=== PATIENT | male | born 2000 | race Native Hawaiian/Other Pacific Islander ===

== ENCOUNTER 2025-05-26 18:46 | Emergency (ER) | payer OTHER, SELFPAY ==
[2025-05-26 19:05] VITALS: BP 149/88; PULSE 60; RESP 18; TEMP 36.7; O2SAT 98; BMI 30.7
[2025-05-26 20:43] VITALS: BP 140/87; PULSE 64; RESP 16; O2SAT 96
--- NOTE | 2025-05-26 21:03 | CTR_ITS ---
PROCEDURE INFORMATION: Exam: CT Abdomen And Pelvis With Contrast Exam date and time: 05/26/2025 9:28 PM Age: 25 years old Clinical indication: Abdominal pain; Additional info: Rlq pain TECHNIQUE: Imaging protocol: Computed tomography of the abdomen and pelvis with contrast. Total images: 281 Radiation optimization: All CT scans at this facility use at least one of these dose optimization techniques: automated exposure control; mA and/or kV adjustment per patient size (includes targeted exams where dose is matched to clinical indication); or iterative reconstruction. Contrast material: [id number]; Contrast volume: 100 ml; Contrast route: INTRAVENOUS (IV); COMPARISON: No relevant prior studies available. RADIATION DOSE METRICS: Total DLP (mGy-cm): 904.83 FINDINGS: Lungs: Insofar as lung bases are included within the field of view, no acute pathologic pulmonary process appreciated. Diaphragm: Small hiatal hernia present. Liver: Liver fatty infiltrated. Gallbladder and biliary ducts: Gallbladder unremarkable. No biliary ductal dilatation. Pancreas: Pancreas of normal thickness, contour, without pathologic pancreatic duct dilatation. Spleen: Spleen appears normal in contour and size without pathologic splenic mass. Adrenal glands: Adrenal glands are normal. Kidneys and ureters: Kidneys are normal. No evidence of obstructing urinary tract calculus, hydroureteronephrosis or perinephric edema. Stomach and bowel: No evidence of pathologic bowel distension or bowel wall thickening. Stomach is nondistended demonstrating areas of gastric wall thickening without suspicious pathologic fluid or inflammation to suggest acute gastritis or other specific inflammatory gastric process. Moderate volume of stool throughout the course of the nondistended cecum and ascending colon. Mild chronic diverticulosis of the distal colon without imaging evidence of acute diverticulitis. Left pelvic slightly indurated pericolonic nodule or lymph node (series 4, image 80; series 6, image 27; series 7, image 32) which may represent epiploic appendagitis. Appendix: Normal appendix. Intraperitoneal space: No significant peritoneal free fluid. No free peritoneal air. Vasculature: No major vessel occlusion, dissection, aneurysmal dilatation or definite hemodynamically significant stenosis. Lymph nodes: No lymphadenopathy. Urinary bladder: Bladder nondistended which likely accounts for uniform circumferential wall thickening. Reproductive: Prostate gland and seminal vesicles are normal. Bones/joints: No acute findings or suspicious lesions seen of the bones. Soft tissues: Ventral abdominal wall midline umbilical-periumbilical fat-containing hernia without inflammatory manifestations. Soft tissues are normal as visualized, demonstrating no masses or induration. CT/CT abdomen pelvis w con* [id number] IMPRESSION: 1. Query limited epiploic appendagitis adjacent to the otherwise normal-appearing sigmoid colon, slice positions reported above. 2. Distal sigmoid colon few uncomplicated diverticuli. 3. Moderate right colonic stool burden without distension, query constipation. 4. Normal appearance of the appendix and gallbladder. 5. Otherwise no acute intra-abdominal pathologic process identified. 6. Generalized hepatic steatosis.
[2025-05-26 21:24] LABS: Hematocrit 46.4 % (37-53); Hemoglobin 16.70 g/dL (11.27-16.99); Mean Corpuscular HGB Conc 36.0 g/dL (30-55); Mean Corpuscular Hemoglobin 29.1 pg (27-33); Mean Corpuscular Volume 81.0 fl (82-101); Nucleated Red Blood Cells % 0 %; Platelet Count 271 10^3/cmm (157-399); Red Blood Count 5.73 10^6/uL (3.85-5.65); White Blood Count 9.60 10^3/uL (3.29-11.43)
[2025-05-26 21:26] LABS: Add Urine Microscopic? NO
[2025-05-26 21:29] LABS: Glucose Urine UA Negative (Normal); Nitrate Urine Negative (Negative); Specific Gravity, Urine 1.021 (1.005-1.030)
[2025-05-26 21:32] LABS: Charge for UA Resulting for Rev
[2025-05-26] MEDS: iohexol 350 mg/mL 500 mL Btl (per mL) IV (21:32)
--- NOTE | 2025-05-26 21:33 | ED_ITS ---
HPI - Abdominal Pain 2 General: Chief Complaint: Abdominal Pain Stated Complaint: Abd Pain Time Seen by Provider: 05/26/25 19:52 Source: patient Mode of arrival: ambulatory Limitations: no limitations History of Present Illness: Patient is a 25-year-old male who reports to emergency department complaining of right lower quadrant abdominal pain that has been going on for 3 days. States that it has since radiated into his back. No history of prior abdominal surgeries. States he has lost his appetite, has been nauseous but no vomiting. No urinary symptoms or changes in bowel habits. States that the pain feels sharp and stabbing, he has not taken any medications for the pain. Does not report any specific alleviating or exacerbating factors to the pain. Vital stable at this time, overall nontoxic-appearing. No reporting fevers or chills. MD elicited complaint: abdominal pain Pertinent past history: none Onset (ago): day(s) Pain Consistency: constant Location: RLQ Quality: stabbing and sharp Radiation: back Exacerbating factors: nothing Relieving factors: nothing Associated Symptoms: Reports nausea; Denies bloating, change in stool character, chills, constipation, diarrhea, dysuria, fever(s), hematochezia and vomiting Related Data Allergies Allergy/AdvReac Type Severity Reaction Status Date / Time Milk Containing Products Allergy ADR-Gastrointestinal Verified 05/26/25 19:10 (Dairy) Upset Penicillins Allergy ALGY-Hives Verified 05/26/25 19:10 Review of Systems 2 General: Reports: 10 or more systems reviewed and unremarkable except in HPI and below Const: Reports: change in appetite; Denies: fever(s), chills, change in weight or diaphoresis ENMT: Denies: throat pain or hoarseness Card: Denies: chest pain, palpitations or lightheadedness Resp: Denies: dyspnea, productive cough or wheezing GI: Reports: abdominal pain and nausea; Denies: vomiting, diarrhea, constipation, bloating, change in stool character or hematochezia : Denies: flank pain, difficulty urinating, dysuria, urinary frequency or urinary urgency Musc: Reports: back pain; Denies: neck pain Skin/Breast: Denies: rash or new lesions Neuro: Denies: headache(s) or dizziness Physical Exam 2 Const: COMMON NORMALS: no acute distress, average body habitus, patient oriented x3, no limitations, healthy appearing, alert and well nourished G ENERAL APPEARANCE: cooperative and comfortable ORIENTATION/CONSCIOUSNESS: Yes awake OTHER: Nontoxic-appearing, comfortable. Neck/C-Spine: COMMON NORMALS: full ROM, supple and no meningeal signs Resp: COMMON NORMALS: normal respiratory effort, No retractions, No use of accessory muscles and clear to auscultation bilaterally AUSCULTATION: clear to auscultation bilaterally, no crackles, no rales, no rhonchi and no wheezes Cardio: COMMON NORMALS: regular rate, regular rhythm, No gallops present (Cardio), No clicks present (Cardio), No murmurs present (Cardio) and No rub (Cardio) RATE: regular rate RHYTHM: regular rhythm GI: COMMON NORMALS: Normal to inspection, nondistended, normoactive bowel sounds present, Soft to palpation, No hepatosplenomegaly present and no masses AUSCULTATION: Yes normoactive bowel sounds PALPATION: Yes Soft to palpation, Yes Tenderness to palpation present (GI) Details: RLQ, No Guarding due to palpation present (GI), No Rigid due to palpation and Yes No hepatosplenomegaly present RECTAL EXAM: Yes deferred OTHER: Negative Rovsing sign : COMMON NORMALS: Yes no CVA tenderness BLADDER/KIDNEY EXAM: Yes no CVA tenderness Back/Pelvis: COMMON NORMALS: no CVA tenderness Extremity: COMMON NORMALS: normal to inspection and full ROM Neuro: COMMON NORMALS: patient oriented x3, moves all extremities, no focal motor deficits and no sensory deficits noted SENSORIUM/ORIENTATION: Yes alert MENINGEAL SIGNS: Yes no meningeal signs Psych: COMMON NORMALS: mental status grossly normal, cooperative and speech normal SPEECH: Yes normal speech Skin: COMMON NORMALS: no rashes or lesions noted GENERAL SKIN EXAM: no rashes or lesions noted Course 2 Vital Signs: Vital signs: Vital Signs Temperature 98.1 F 05/26/25 19:05 Pulse Rate 63 05/26/25 22:28 Respiratory Rate 16 05/26/25 22:28 Blood Pressure 143/95 05/26/25 22:28 Pulse Oximetry 95 05/26/25 22:28 Oxygen Delivery Me thod Room Air 05/26/25 20:43 MDM - Abdominal Pain Medical Decision Making Patient presenting with right lower quadrant pain for the past few days, radiating to the back and associated nausea. Positive tender to palpation right lower quadrant but there were no peritoneal signs. He did still have his appendix gallbladder, no previous abdominal surgeries. Vitals have been stable, nontoxic-appearing on exam as well. His lab work was all normal, CT does not show any acute findings. Does appear that he is constipated, this could explain his pain versus other benign etiologies that is discussed with the patient, he is given general return precautions told to follow-up with primary care for routine reevaluation. Lab Data 05/26/25 20:57 05/26/25 20:57 Labs/Radiology: Radiology Impressions Abdomen/Pelvis CT 05/26/25 21:03 IMPRESSION: 1. Query limited epiploic appendagitis adjacent to the otherwise normal-appearing sigmoid colon, slice positions reported above. 2. Distal sigmoid colon few uncomplicated diverticuli. 3. Moderate right colonic stool burden without distension, query constipation. 4. Normal appearance of the appendix and gallbladder. 5. Otherwise no acute intra-abdominal pathologic process identified. 6. Generalized hepatic steatosis. Laboratory Results WBC 9.60 10^3/uL (3.29-11.43) 05/26/25 20:57 RBC 5.73 10^6/uL (3.85-5.65) H 05/26/25 20:57 Hgb 16.70 g/dL (11.27-16.99) 05/26/25 20:57 Hct 46.4 % (37-53) 05/26/25 20:57 MCV 81.0 fl (82-101) L 05/26/25 20:57 MCH 29.1 pg (27-33) 05/26/25 20:57 MCHC 36.0 g/dL (30-55) 05/26/25 20:57 RDW 12.2 % (12.1-15.1) 05/26/25 20:57 Plt Count 271 10^3/cmm (157-399) 05/26/25 20:57 MPV 10.5 fL (7.4-10.4) H 05/26/25 20:57 Neut % (Auto) 47.4 % 05/26/25 20:57 Lymph % (Auto) 37.6 % 05/26/25 20:57 Crisp % (Auto) 8.4 % 05/26/25 20:57 Eos % (Auto) 5.3 % 05/26/25 20:57 Baso % (Auto) 1.0 % 05/26/25 20:57 Neut # (Auto) 4.54 10^3/uL (1.8-7.7) 05/26/25 20:57 Lymph # (Auto) 3.6 10^3/uL (0.8-4.8) 05/26/25 20:57 Crisp # (Auto) 0.8 10^3/uL (0.2-0.9) 05/26/25 20:57 Eos # (Auto) 0.5 10^3/uL (0.0-0.8) 05/26/25 20:57 Baso # (Auto) 0.1 10^3/uL (0.0-0.1) 05/26/25 20:57 Nucleated RBC % (auto) 0 % 05/26/25 20:57 Nucleated RBCs # 0.0 /100WBC 05/26/25 20:57 Sodium 140 mmol/L (136-145) 05/26/25 20:57 Potassium 3.9 mmol/L (3.5-5.1) 05/26/25 20:57 Chloride 103 mmol/L (98-107) 05/26/25 20:57 Carbon Dioxide 26 mmol/L (22-29) 05/26/25 20:57 Anion Gap 14.9 (5-19) 05/26/25 20:57 BUN 13 mg/dL (6-20) 05/26/25 20:57 Creatinine 0.8 mg/dL (0.7-1.2) 05/26/25 20:57 GFR Calculation 116.9 mL/min (90-130) 05/26/25 20:57 Glucose 92 mg/dL (65-115) 05/26/25 20:57 Calculated Osmolality 290 mOsm/kg (285-295) 05/26/25 20:57 Calcium 9.6 mg/dL (8.5-10.5) 05/26/25 20:57 Total Bilirubin 0.7 mg/dL (0.15-1.2) 05/26/25 20:57 AST 17 U/L (0-40) 05/26/25 20:57 ALT 15 U/L (0-41) 05/26/25 20:57 Alkaline Phosphatase 58 U/L (40-130) 05/26/25 20:57 Total Protein 7.8 g/dL (6.6-8.7) 05/26/25 20:57 Albumin 4.7 g/dL (3.5-5.2) 05/26/25 20:57 Globulin 3.1 g/dL (1.3-4.6) 05/26/25 20:57 Lipase 20 U/L (13-60) 05/26/25 20:57 Urine Color Yellow (Yellow) 05/26/25 21:08 Urine Appearance Clear (CLEAR) 05/26/25 21:08 Urine pH 5.5 (5-7) 05/26/25 21:08 Ur Specific [place] 1.021 (1.005-1.030) 05/26/25 21:08 Urine Protein Negative (Negative) 05/26/25 21:08 Urine Glucose (UA) Negative (Normal) 05/26/25 21:08 Urine Ketones 1+ (Negative) H 05/26/25 21:08 Urine Blood Negative (Negative) 05/26/25 21:08 Urine Nitrate Negative (Negative) 05/26/25 21:08 Urine Bilirubin Negative (Negative) 05/26/25 21:08 Urine Urobilinogen 1.0 mg/dL (Negative) 05/26/25 21:08 Ur Leukocyte Esterase Negative (Negative) 05/26/25 21:08 Amorphous Sediment Not Reportable 05/26/25 21:08 All radiology interpretation(s) finalized by discharge Discharge Plan Discharge Patient Disposition: Home Clinical Impression: Abdominal pain Qualifiers: Abdominal location: right lower quadrant Qualified Code(s): R10.31 - Right lower quadrant pain Condition: Stable Discharge Orders: Discharge ED (Routine); Ordered 05/26/25 Ordered By: Mike Hector Patient Instructions: Abdominal Pain (ED), Patient Portal & Veronica Instructions Activity Restrictions/Additional Instructions: Abdominal Pain Discharge Diagnosis: Abdominal pain, likely related to constipation. No acute findings on CT abdomen/pelvis. Laboratory studies within normal limits. Summary and Benign Etiologies: The most likely cause of this patient's abdominal pain is constipation, as supported by imaging and clinical presentation. Other benign etiologies to consider include: - Functional gastrointestinal disorders (e.g., irritable bowel syndrome, functional dyspepsia, functional abdominal pain syndrome), which are common in young adults and often present with abdominal pain in the absence of structural disease. - Nonspecific abdominal pain, which is frequently encountered in the emergency setting and often resolves spontaneously. - Mild self-limited gastrointestinal infections or post-infectious changes, which may not be apparent on initial workup. - Abdominal wall pain (e.g., myofascial pain), which can mimic intra-abdominal pathology. - Rare benign causes such as epiploic appendagitis, which is self-limited and typically diagnosed on imaging. Constipation Management: - Dietary fiber: Gradually increase fiber intake through diet and/or supplements (e.g., psyllium 15 g daily). - Hydration: Encourage adequate fluid intake. - Physical activity: Regular exercise can improve bowel function. - Osmotic laxatives: Polyethylene glycol (PEG) is first-line (e.g., 17 g daily as needed). Magnesium-based laxatives are also effective and safe. - Stimulant laxatives: Bisacodyl or senna may be used for rescue therapy if needed. - Avoid opioid analgesics for abdominal pain, as they can worsen constipation and are not recommended for functional pain syndromes. Return Precautions: The patient should be instructed to return for immediate re-evaluation if any of the following develop: - Persistent or worsening abdominal pain - New onset of fever or chills - Recurrent or persistent vomiting - Inability to tolerate oral intake or signs of dehydration - Blood in stool or black, tarry stools - Unintentional weight loss - Jaundice or new swelling of the abdomen - Any other concerning or rapidly progressive symptoms These symptoms may indicate a more serious underlying condition that was not apparent on initial evaluation and warrant prompt reassessment. Follow-Up: - Arrange for follow-up with primary care or gastroenterology within 1?2 weeks to reassess symptoms and response to therapy. - If symptoms persist or worsen, further evaluation for less common causes of abdominal pain (e.g., metabolic, inflammatory, or structural disorders) may be warranted. - Scheduled return visits for non-specific abdominal pain have been shown to result in clinically relevant changes in diagnosis or management in a significant minority of patients, underscoring the importance of follow-up. Patient Education: - Most cases of abdominal pain with negative workup are benign and self-limited. - Constipation is a common and treatable cause of abdominal pain in young adults. - Adherence to dietary and lifestyle modifications, as well as appropriate use of laxatives, is essential for symptom control and prevention of recurrence. - Avoid unnecessary repeat imaging unless new or worsening symptoms develop, to minimize radiation exposure. Summary: The patient is being discharged with a diagnosis of abdominal pain likely secondary to constipation, with no evidence of acute intra-abdominal pathology. The patient has been educated on benign causes, management strategies, and clear return precautions. Outpatient follow-up is recommended to ensure resolution of symptoms and to monitor for any evolving pathology. Print Language: Belarusian Coding Level of Care Code ED Environmental Compliance Technician for Izabel Dunn
[2025-05-26 21:41] LABS: Alanine Aminotransferase 15 U/L (0-41); Albumin Level 4.7 g/dL (3.5-5.2); Alkaline Phosphatase 58 U/L (40-130); Anion Gap 14.9 (5-19); Aspartate Amino Transferase 17 U/L (0-40); Blood Urea Nitrogen 13 mg/dL (6-20); Calcium 9.6 mg/dL (8.5-10.5); Carbon Dioxide 26 mmol/L (22-29); Chloride 103 mmol/L (98-107); Creatinine Clr Calc Pharmacy 163.5338; Globulin 3.1 g/dL (1.3-4.6); Glucose 92 mg/dL (65-115); Lipase 20 U/L (13-60); Osmolality Calculated 290 mOsm/kg (285-295); Potassium 3.9 mmol/L (3.5-5.1); Sodium 140 mmol/L (136-145); Total Protein 7.8 g/dL (6.6-8.7)
[2025-05-26 22:28] VITALS: BP 143/95; PULSE 63; RESP 16; O2SAT 95
== END 2025-05-26 22:28 | disposition home or self-care (01) ==
PROVIDERS: Emergency Provider Physician Assistant
DX: R10.31 Right lower quadrant pain (principal)
CPT/HCPCS: 36415; 74177; 80053; 81003; 83690; 85025; 99285